=== PATIENT | female | born 1965 ===

== ENCOUNTER 2018-10-16 08:00 | Outpatient (CLI) | payer OTHER ==
[~2018-10-16 08:00] MED LIST: SYNTHROID50 MCG
== END 2018-10-16 08:06 | disposition home or self-care (01) ==
LOC: RAD 08:00
DX: Z12.31 Encounter for screening mammogram for malignant neoplasm of breast (principal); R10.9 Unspecified abdominal pain; J06.9 Acute upper respiratory infection, unspecified

== ENCOUNTER 2018-10-16 08:45 | Outpatient (CLI) | payer OTHER | END 2018-10-16 09:49 | disposition home or self-care (01) | LOC: LAB 08:45 | DX: Z12.11 Encounter for screening for malignant neoplasm of colon (principal); N39.0 Urinary tract infection, site not specified; B33.8 Other specified viral diseases; E55.9 Vitamin D deficiency, unspecified; R10.9 Unspecified abdominal pain; I10 Essential (primary) hypertension; E04.0 Nontoxic diffuse goiter; E78.2 Mixed hyperlipidemia; E11.9 Type 2 diabetes mellitus without complications; D58.2 Other hemoglobinopathies; D53.8 Other specified nutritional anemias; D55.8 Other anemias due to enzyme disorders ==